=== PATIENT | female | born 1960 | race Caucasian/White ===

== ENCOUNTER 2024-12-01 20:44 | Emergency (ER) | payer OTHER, SELFPAY ==
[2024-12-01 20:48] VITALS: BP 136/89
[2024-12-02] MEDS: ROXICODONE 5 MG PO (01:22)
[2024-12-02] MEDS: TORADOL 30 MG IM (01:23)
[2024-12-02] MEDS: TYLENOL 1000 MG PO (01:23)
[2024-12-02 01:24] VITALS: BMI 27.9
[2024-12-02 01:40] VITALS: BP 149/99
--- NOTE | 2024-12-02 02:20 | ED.GENMED ---
History of Present Illness
General
Chief Complaint: Musculo-Skeletal Complaint
Source: patient
Exam Limitations: none
Time Seen by Provider: 12/02/24 01:05
Nursing documentation reviewed up to this point in time: agreed with
History of Present Illness
History of Present Illness:
64-year-old female with history as noted presents for evaluation of right shoulder injury. Patient slipped and fell and struck her right shoulder on a table. She says she did not hit her head or lose consciousness. She complains of severe pain in
the right shoulder that radiates towards the lateral part of her neck and down the right arm. Worse with any movement. No relieving factors noted. She denies any headache or neck pain/back pain. She denies any rib pain or abdominal pain. Denies
any pain in the left upper extremity or in her lower extremities. Denies being on blood thinners.
Review of Systems
Review of Systems
All Other Systems: ROS reviewed and negative except as documented in HPI and ROS
Respiratory: Denies trouble breathing
Cardiac: Denies chest pain
ABD/GI: Denies abdominal pain or nausea
: Denies flank pain
Musculoskeletal: Reports joint pain; Denies neck pain or back pain
Neurological: Denies dizzy or headache
Phy Exam
Physical Exam
Physical Exam:
General: Awake, alert, oriented x3; appears uncomfortable
Head: Normocephalic, atraumatic
Eyes: Conjunctiva normal, pupils equal round and reactive to light bilaterally
Throat: Airway intact, handling secretions
Neck: Trachea midline, no midline cervical tenderness, full range of motion without pain
Back: No tenderness in the thoracic or lumbar spine
Lungs: Clear to auscultation bilaterally, no wheezing, rales, rhonchi
Heart: Regular rate, no rib tenderness
Abd: Soft, non distended, nontender
Neuro: Cranial nerves grossly intact, speech fluid; motor and sensory intact radial, median, ulnar nerve distribution right upper extremity
Skin: No lacerations or abrasions noted
Extremities: On exam of the right arm patient has severe tenderness of the humeral head but no tenderness on the clavicle or scapula, no tenderness of the elbow or wrist on the right; she has pain with any attempted range of motion of the right
shoulder; strong right radial pulse; rest of extremities are atraumatic and she allows for comfortable movement without pain
Scores
Heart Failure Risk
Heart Failure Risk Score: Not Applicable
Heart Score for Chest Pain Patients
STEMI patient?: Not applicable
Withdrawal Assessment of Alcohol
Withdrawal Assessment Completed?: Not applicable
Course
Orders/Labs/Results
Orders:
Orders
12/01/24 20:46
Shoulder, Right, Trauma [CR Shoulder, Trauma - Right] Urgent
Comment:
Reason For Exam: right shoulder pain from injury
12/02/24 01:05
Sling Right-Treatment ONCE
12/02/24 01:17
Acetaminophen [Tylenol] 1,000 mg PO NOW STA
Ketorolac [Toradol] 30 mg IM NOW STA
Oxycodone [Roxicodone] 5 mg PO NOW STA
12/02/24 02:16
Case Management Consult ONCE
Case Management Consult: VN/Home Care
Comment: broken arm, needs VN/home care...please call
Vital Signs
Initial and Last Documented VS:
Initial Vital Signs
Temp Pulse Resp BP Pulse Ox
36.8 C 76 19 136/89 96
12/01/24 20:48 12/01/24 20:48 12/01/24 20:48 12/01/24 20:48 12/01/24 20:48
Last Documented Vital Signs
Temp Pulse Resp BP Pulse Ox
36.7 C 80 16 149/99 98
12/02/24 01:40 12/02/24 01:40 12/02/24 01:40 12/02/24 01:40 12/02/24 01:40
MDM/Problems Addressed
Differential Diagnosis Includes:
Fracture, dislocation, sprain, AC separation
MDM/Problems Addressed:
64-year-old female presents for evaluation of right shoulder injury. Vitals and exam as above. Fortunately no other serious injuries. X-ray shows fracture of the humeral head. Patient placed in a sling. Given pain control good effect.
Discussed need for follow-up with orthopedist. Offered to keep her overnight to discuss support for home with case management but patient prefers discharge home. Will still have operations manager/coordinatorinternal communications manager for help at home as she says she lives alone.
All questions answered.
*Radiology
Radiology exam reviewed: preliminary read by ED provider and radiology read reviewed
*Pulse Oximetry
SaO2: 98
Oxygen Mode of Delivery: Room air
Patient hypoxic: no (98%)
*Critical Care Note
Total Time (30-74mins, 75-104mins- exclusive of procedures): Not Applicable
Data Reviewed
Source: patient
Patient Management
Social determinants of health affecting care: Living situation (Lives independently) and Poor social support
Escalation/DeEscalation of care consider admission/obs:
Considered observing overnight but patient preferred discharge
ED Attending Note
-
Portions of this chart may have been created with voice recognition software.� Occasional wrong word or��sound alike� substitutions may have occurred due to the inherent limitations of voice recognition software.
Discharge Plan
Departure
Patient Disposition: Home (Routine Discharge)
Date of Disposition: 12/02/24
Time of Disposition: 02:17
Patient with high blood pressure during this ER visit?: No
Discharge Problem:
Fracture of shoulder
Instructions: Upper Arm Fracture ED
Prescriptions:
New
oxycodone 5 mg tablet
5 mg PO Q6H PRN (Reason: Pain) Qty: 10 0RF
Referrals:
Libra Martinez MD [Family Provider, Family Practice]
Ector Peña MD [Active, Orthopedics] - Call in 1-3 days for appt
Activity Restrictions/Additional Instructions:
Thank you for visiting the Emergency Department at [facility].
1. Please schedule a follow up appointment as directed. Call first thing tomorrow morning to make an appointment.
2. If indicated, please take your medications as instructed and indicated on discharge paperwork.
3. If any of your symptoms do not improve, or persist, or become more severe within 6-12 hours, please return to the emergency department for further care.
4. Please return to the emergency department if you develop a headache, neck pain/stiffness, fever greater than 100.4F, chest pain, shortness of breath, persistent nausea, vomiting, slurred speech, difficulty walking, numbness/tingling, weakness,
signs of infection or any other symptoms that are worrisome to you.
Please call [phone] if you have any questions.
Interventions
Interventions:
*Risk Screen - Suicide Last Done: 12/01/24 20:49
*General Assessment Last Done: 12/01/24 20:49
*Neglect/Abuse Screening Last Done: 12/01/24 20:49
*ED- Fall Risk Assessment Last Done: 12/02/24 01:30
*ED COVID-19 Vaccine History Last Done: 12/01/24 20:49
*ED Influenza Vaccine History Last Done: 12/01/24 20:49
ED-Musculoskeletal Assessment Last Done: 12/02/24 01:28
Discharge Date and Time
Print Language: K[place]
--- NOTE | 2024-12-02 15:42 | EDCM ---
Received overnight consult, I called and spoke to pt. Her daughter is coming up from [place] to stay with and provide support, hopefully can stay for a week. Discussed VN referral and pt is interested, agreeable to [facility] referral. Referral placed in
Care Port.
== END 2024-12-02 02:27 | disposition home or self-care (01) ==
LOC: EMR 20:44
PROVIDERS: EMERGENCY PHYSICIAN Emergency Medicine; FAMILY PHYSICIAN Family Medicine
DX: S42.211A Unspecified displaced fracture of surgical neck of right humerus, initial encounter for closed fracture (principal); W01.190A Fall on same level from slipping, tripping and stumbling with subsequent striking against furniture, initial encounter
CPT/HCPCS: 99284; 96372; 73030